=== PATIENT | female | born 1995 | race Caucasian/White ===

== ENCOUNTER 2021-10-29 11:30 | Emergency (ER) | payer BC ==
[~2021-10-29] VITALS: Ht 160 cm; Wt 61.2 kg
[2021-10-29 11:37] VITALS: BP 151/89
--- NOTE | 2021-10-29 11:45 | NUR ---
BIBS for "Dropped a knife on my Left index finger". Will continue to monitor the patient.
--- NOTE | 2021-10-29 11:55 | NUR ---
Patient discharged to home in stable condition. Written and verbal after care instructions given. Patient verbalizes understanding of instruction.
== END 2021-10-29 11:56 | disposition home or self-care (01) ==
LOC: ER 11:30
DX: S61.211A Laceration without foreign body of left index finger without damage to nail, initial encounter (principal); W26.0XXA Contact with knife, initial encounter; Y93.89 Activity, other specified; Y92.89 Other specified places as the place of occurrence of the external cause; Y99.8 Other external cause status